=== PATIENT | female | born 1965 | race Caucasian/White ===

== ENCOUNTER 2020-03-06 18:18 | Emergency (ER) | payer MEDICAID ==
[2020-03-06 18:34] VITALS: BP 122/61
--- NOTE | 2020-03-06 18:40 | ER Document Report ---
ED Head/Face/Scalp Injury - General Chief Complaint: Head Injury Stated Complaint: HEAD INJURY Time Seen by Provider: 03/06/20 18:29 Primary Care Provider: ANCELMO VERA NP [Primary Care Provider] - Follow up as needed Mode of Arrival: Wheelchair Information source: Patient Notes: 54-year-old female presented to ED for hitting her head on a metal rack during a yard sale. She did have a very superficial scratch to the left forehead. She states she was dizzy when she first hit she has some nausea but no vomiting. States tetanus was 3 years ago. She is alert oriented respirations regular nonlabored speaking in full sentences. She has a past medical history of diabetes cholesterol neuropathy from the diabetes. She also has anxiety depression and has had her gallbladder removed. TRAVEL OUTSIDE OF THE [place] IN LAST 30 DAYS: No - HPI Patient complains to provider of: Contusion, Laceration - Very superficial scratch to the left forehead Injury to: Forehead Location of problem: Forehead Occurred: Just prior to arrival Where: Home, Outdoors Timing: Better Context: Became dizzy/fainted, Laceration - Very superficial laceration Loss consciousness: No loss of consciousness Remembers: Injury, Coming to hospital - Related Data Allergies/Adverse Reactions: alprazolam [From Xanax] Adverse Reaction (Unknown, Verified 03/06/20 18:29) Nausea Past Medical History - General Information source: Patient - Social History Smoking Status: Current Every Day Smoker Cigarette use (# per day): Yes - Pack per day Chew tobacco use (# tins/day): No Smoking Education Provided: Yes - 4 minutes Frequency of alcohol use: None Drug Abuse: None Lives with: Family Family History: Arthritis, CAD - Mother with coronary disease in her 30s, father in his 60s, CVA, DM, Hyperlipidemia, Hypertension, Malignancy, Thyroid Disfunction Patient has homicidal ideation: No - Past Medical History Cardiac Medical History: Reports: Hx Hypercholesterolemia, Hx Hypertension Pulmonary Medical History: Reports: None EENT Medical History: Reports: None Neurological Medical History: Reports: None Endocrine Medical History: Reports: Hx Diabetes Mellitus Type 2 Renal/ Medical History: Reports: None Malignancy Medical History: Reports: None GI Medical History: Reports: None Musculoskeletal Medical History: Reports Hx Arthritis, Reports Hx Musculoskeletal Deformity - scoliosis, chronic back pain Skin Medical History: Reports None Psychiatric Medical History: Reports: Hx Depression Traumatic Medical History: Reports: None Infectious Medical History: Reports: None Past Surgical History: Reports: Hx Cholecystectomy - Immunizations Hx Diphtheria, Pertussis, Tetanus Vaccination: Yes Hx Pneumococcal Vaccination: 07/25/13 Review of Systems - Review of Systems Constitutional: No symptoms reported EENT: No symptoms reported Cardiovascular: No symptoms reported Respiratory: No symptoms reported Gastrointestinal: No symptoms reported Genitourinary: No symptoms reported Female Genitourinary: No symptoms reported Musculoskeletal: No symptoms reported Skin: No symptoms reported Hematologic/Lymphatic: No symptoms reported Neurological/Psychological: No symptoms reported, Headaches -: Yes All other systems reviewed and negative Physical Exam - Vital signs Vitals: Temp Pulse Resp BP Pulse Ox 99.0 F 67 16 122/61 96 03/06/20 18:26 03/06/20 18:26 03/06/20 18:26 03/06/20 18:26 03/06/20 18:26 Interpretation: Normal - General General appearance: Appears well, Alert - HEENT Head: Open wounds - Very superficial laceration to the left forehead about 2 cm cleaned well with soap and water bacitracin applied, Tenderness Eyes: Normal Pupils: PERRL Visual bolanos normal: Yes Ears: Normal External canal: Normal Tympanic membrane: Normal Sinus: Normal Nasal: Normal Mouth/Lips: Normal Mucous membranes: Normal Pharynx: Normal Neck: Normal - Respiratory Respiratory status: No respiratory distress Chest status: Nontender Breath sounds: Normal Chest palpation: Normal - Cardiovascular Rhythm: Regular Heart sounds: Normal auscultation Murmur: No - Abdominal Inspection: Normal Distension: No distension Bowel sounds: Normal Tenderness: Nontender Organomegaly: No organomegaly - Back Back: Normal, Nontender - Extremities General upper extremity: Normal inspection, Nontender, Normal color, Normal ROM, Normal temperature General lower extremity: Normal inspection, Nontender, Normal color, Normal ROM, Normal temperature, Normal weight bearing. No: Ham's sign - Neurological Neuro grossly intact: Yes Cognition: Normal Orientation: AAOx4 Asc[place] Coma Scale Eye Opening: Spontaneous Ascencion Coma Scale Verbal: Oriented [place] Coma Scale Motor: Obeys Commands Ascencion Coma Scale Total: 15 Speech: Normal Cranial nerves: Normal Cerebellar coordination: Normal Motor strength normal: LUE, RUE, LLE, RLE Additional motor exam normals: Equal java developer Babinski reflex: Normal (flexor plantar) Sensory: Normal Biceps - Reflex grade: 2 = Normal Triceps - Reflex grade: 2 = Normal Brachioradialis - Reflex grade: 2 = Normal Knee - Reflex grade: 2 = Normal Ankle - Reflex grade: 2 = Normal - Psychological Associated symptoms: Normal affect, Normal mood - Skin Skin Temperature: Warm Skin Moisture: Dry Skin Color: Normal Course - Re-evaluation Re-evalutation: 03/06/20 18:42 No neurological deficits at this time. She is alert and oriented no loss of consciousness no vomiting no change in orientation answering questions appropriately walks with even steady gait. She has been given head injury precautions. Her superficial laceration was cleaned with soap and water bacitracin applied with a Band-Aid. Patient was given instructions on cleaning wound and applying bacitracin and Band-Aid. - Vital Signs Vital signs: Temp Pulse Resp BP Pulse Ox 99 F 67 16 122/61 96 03/06/20 18:29 03/06/20 18:26 03/06/20 18:26 03/06/20 18:26 03/06/20 18:26 Discharge - Discharge Clinical Impression: Superficial laceration to the left forehead Head injury Qualifiers: Encounter type: initial encounter Qualified Code(s): S09.90XA - Unspecified injury of head, initial encounter Condition: Stable Disposition: HOME, SELF-CARE Additional Instructions: HEAD INJURY PRECAUTIONS: At this point, there is no evidence that your head injury is serious. Observation is necessary, however. Take only clear liquids for the first few hours, unless told otherwise by the doctor. If no pain medication was prescribed, you may take acetaminophen according to the directions on the bottle. Do not take any medication that may alter your level of alertness (unless you've discussed it with the doctor first). Limit activity for the first 24 hours. Bed rest is best. During the first 24 hours, check to see approximately every two to three hours that the patient is easily arousable, responds normally, and can perform common tasks such as walking without difficulty. Contact your doctor or go to the hospital if any of the following things occur: Persistent vomiting, difficulty in arousing the patient, worsening or continued headache, or failure to improve as expected. Head injuries can cause symptoms that persist for a few days or even a few weeks. USE OF TYLENOL (ACETAMINOPHEN): Acetaminophen may be taken for pain relief or fever control. It's much safer than aspirin, offering a wider range of "safe" dosages. It is safe during . Some brand names are Tylenol, Panadol, Datril, Anacin 3, Tempra, and Liquiprin. Acetaminophen can be repeated every four hours. The following are maximum recommended dosages: WEIGHT Dose Drops Elixir Chewable(80mg) (LBS.) drprs=droppers tsp=teaspoon 6 40 mg 0.4 ml (1/2) 6-11 80 mg 0.8 ml (full) tsp 1 tab 12-16 120 mg 1 1/2 drprs 3/4 tsp 1 1/2 tabs 17-23 160 mg 2 drprs 1 tsp 2 tabs 24-30 240 mg 3 drprs 1 1/2 tsp 3 tabs 30-35 320 mg 2 tsp 4 tabs 36-41 360 mg 2 1/4 tsp 4 1/2 tabs 42-47 400 mg 2 1/2 tsp 5 tabs 48-53 480 mg 3 tsp 6 tabs 54-59 520 mg 3 1/4 tsp 6 1/2 tabs 60-64 560 mg 3 1/2 tsp 7 tabs 65-70 600 mg 3 3/4 tsp 7 1/2 tabs 71-76 640 mg 4 tsp 8 tabs 77-82 720 mg 4 1/2 tsp 9 tabs 83-88 800 mg 5 tsp 10 tabs >89 pounds or adults 650 mg to 900 mg Acetaminophen can be repeated every four hours. Maximum dose not to exceed 4000 mg a day. These maximum recommended dosages are slightly higher than the dosages written on the product container, but these dosages are very safe and below the toxic dosage for acetaminophen. NON-SUTURED LACERATION: Your laceration did not require suturing. Some lacerations cannot be sutured because of increased infection risk, while others simply don't need stitches because they are shallow or very short. Your injury should be protected while it heals. Usually complete healing takes 10 to 14 days. Keep the dressing clean and dry, and change it every day. If you notice increasing pain, redness, swelling, drainage, or tender lumps in the armpit or groin above the injury, infection may be present. You should call the doctor at once. ICE PACKS: Apply ice packs frequently against the painful area. Many different schedules are recommended, such as "20 minutes on, 20 minutes off" or "one hour ice, two hours rest." If you need to work, you may need to go longer between ice treatments. You should plan to have the area ice packed AT LEAST one fourth of the time. The ice should be applied over the wrap, tape, or splint, or over a layer of cloth -- not directly against the skin. Some ice bags have a built-in cloth and can be put directly on the skin. WARM PACKS: After approximately two days, apply gentle heat (such as a heating pad or hot water bottle) for about 20 to 30 minutes about every two hours -- at least four times daily. Warmth and elevation will help you make a more rapid recovery, and will ease the pain considerably. Do not use HOT heat, and never apply heat for longer than 30 minutes. The continuous heat can invisibly damage skin and muscles -- even when no burn is seen on the surface. Damaged muscles can make you MORE sore. Antibiotic Ointment Protection Your wounds are such that dressing them is not practical or optional. After cleansing, you should apply a thin coating of antibiotic ointment (Bacitracin, not Neosporin) to the wounds at least three times daily. This lessens infection risk, and may decrease the amount of scarring. Use a q-tip or dull butter knife, not your finger, to apply this ointment. Any debris or ooze which builds up in the ointment should be gently rubbed off with a sterile gauze pad. Harder crusting may need to be gently scrubbed off with a clean wash cloth with soap and warm water, perhaps applying a warm, wet wash cloth to the wound for ten minutes first. Development of redness, severe itching, or blistering may mean allergy to the ointment. See the doctor. FOLLOW-UP CARE: If you have been referred to a physician for follow-up care, call the physicians office for an appointment as you were instructed or within the next two days. If you experience worsening or a significant change in your symptoms, notify the physician immediately or return to the Emergency Department at any time for re-evaluation. Forms: Smoking Cessation Education Referrals: ANCELMO VERA NP [Primary Care Provider] - Follow up as needed
[2020-03-06] MEDS ORDERED: ACETAMINOPHEN 325 MG TABLET PO ONE (18:41)
== END 2020-03-06 18:44 | disposition home or self-care (01) ==
LOC: ER 18:18
DX: S01.81XA Laceration without foreign body of other part of head, initial encounter (principal); R51 Headache; W22.8XXA Striking against or struck by other objects, initial encounter; Y92.007 Garden or yard of unspecified non-institutional (private) residence as the place of occurrence of the external cause; E11.40 Type 2 diabetes mellitus with diabetic neuropathy, unspecified; I10 Essential (primary) hypertension; F17.210 Nicotine dependence, cigarettes, uncomplicated
CPT/HCPCS: 99283; J3490

== ENCOUNTER 2020-09-22 17:24 | Emergency (ER) | payer MEDICAID ==
--- NOTE | 2020-09-22 18:03 | ER Document Report ---
ED Medical Screen (RME) - General Chief Complaint: Rash Stated Complaint: RASH/REACTION TO MEDS Time Seen by Provider: 09/22/20 17:59 Primary Care Provider: ANCELMO VERA NP [Primary Care Provider] - Follow up as needed Notes: Patient presents complaining of skin rash for the past 10 days that has continued to worsen. Patient states she has rash to her chest and groin area in addition to the right forearm and left lower leg. Rash to the left leg and right forearm have open areas and the left leg is weeping. Patient reports chills at home and states her blood sugar has been running high. Patient is co ncerned she may be having a reaction to a new diabetic medication although is uncertain of the name of the medication. I have greeted and performed a rapid initial assessment of this patient. A comp rehensive ED assessment and evaluation of the patient, analysis of test results and completion of the medical decision making process will be conducted by additional ED providers. TRAVEL OUTSIDE OF THE [place] IN LAST 30 DAYS: No - Related Data Allergies/Adverse Reactions: alprazolam [From Xanax] Adverse Reaction (Unknown, Verified 03/06/20 18:29) Nausea Past Medical History - Past Medical History Cardiac Medical History: Reports: Hx Hypercholesterolemia, Hx Hypertension Endocrine Medical History: Reports: Hx Diabetes Mellitus Type 2 Musculoskeltal Medical History: Reports Hx Arthritis, Reports Hx Musculoskeletal Deformity - scoliosis, chronic back pain Psychiatric Medical History: Reports: Hx Depression Past Surgical History: Reports: Hx Cholecystectomy - Immunizations Hx Diphtheria, Pertussis, Tetanus Vaccination: Yes Physical Exam - Vital signs Vitals: Temp Pulse Resp BP Pulse Ox 98.1 F 92 20 137/70 H 100 09/22/20 17:28 09/22/20 17:28 09/22/20 17:28 09/22/20 17:28 09/22/20 17:28 - General General appearance: Alert Notes: Erythematous rash to chest and groin area, rash to the dorsal right forearm and anterior left lower leg crusted in areas with open lesions, patient with left leg wounds weeping Course - Vital Signs Vital signs: Temp Pulse Resp BP Pulse Ox 98.1 F 92 20 137/70 H 100 09/22/20 17:28 09/22/20 17:28 09/22/20 17:28 09/22/20 17:28 09/22/20 17:28 Doctor's Discharge - Discharge Referrals: ANCELMO VERA, [facility] [Primary Care Provider] - Follow up as needed
[2020-09-22 18:38] LABS: ABSOLUTE BASOPHILS # (AUTO) 0.1 10^3/uL (0.0-0.2); ABSOLUTE EOSINOPHILS # (AUTO) 0.2 10^3/uL (0.0-0.6); ABSOLUTE LYMPHOCYTES (AUTO) 1.6 10^3/uL (0.5-4.7); ABSOLUTE MONOCYTES (AUTO) 0.6 10^3/uL (0.1-1.4); ABSOLUTE NEUT (AUTO) 7.3 10^3/uL (1.7-8.2); EOSINOPHILS % (AUTO) 2.5 % (0-6); HEMATOCRIT 33.9 % (36.0-47.0); HEMOGLOBIN 11.6 g/dL (12.0-15.5); MEAN CORPUSCULAR HEMOGLOBIN 29.3 pg (27.0-33.4); MEAN CORPUSCULAR HGB CONC 34.1 g/dL (32.0-36.0); MEAN CORPUSCULAR VOLUME 86 fl (80-97); MONOCYTES % (AUTO) 6.3 % (3-13); PLATELET COUNT 399 10^3/uL (150-450); RED BLOOD COUNT 3.95 10^6/uL (3.72-5.28); SEGMENTED NEUTROPHILS % (AUTO) 74.2 % (42-78); TOTAL CELLS COUNTED % (AUTO) 100 %; WHITE BLOOD COUNT 9.8 10^3/uL (4.0-10.5)
[2020-09-22 19:05] LABS: ALBUMIN 4.4 g/dL (3.5-5.0); ALKALINE PHOSPHATASE 64 U/L (38-126); ANION GAP 10 (5-19); ASPARTATE AMINO TRANSFERASE 21 U/L (14-36); BILIRUBIN,DIRECT 0.1 mg/dL (0.0-0.4); BILIRUBIN,TOTAL 0.4 mg/dL (0.2-1.3); BLOOD UREA NITROGEN 17 mg/dL (7-20); CALCIUM 10.4 mg/dL (8.4-10.2); CARBON DIOXIDE 27 mmol/L (22-30); CHLORIDE 98 mmol/L (98-107); GLUCOSE 226 mg/dL (75-110); POTASSIUM 4.3 mmol/L (3.6-5.0); TOTAL PROTEIN 7.8 g/dL (6.3-8.2)
--- NOTE | 2020-09-22 19:47 | ER Document Report ---
ED General - General Chief Complaint: Rash Stated Complaint: RASH/REACTION TO MEDS Time Seen by Provider: 09/22/20 17:59 Primary Care Provider: ANCELMO VERA NP [Primary Care Provider] - Follow up as needed TRAVEL OUTSIDE OF THE [place] IN LAST 30 DAYS: No - HPI Notes: 55-year-old female presents with a rash. Patient has had a generalized rash to her neck, chest, torso and extremities ongoing for several weeks. Patient states that the rash seemed to have started after she started taking atorvastatin, started this medication back in July. She has discontinued this medication for the past 2 days. Patient states that the areas are red and very itchy. She has 2 areas that seem to become infected. She saw her primary care doctor for the left lower leg and was prescribed Keflex, she reports that the area is improving, started on Keflex 09/13. She states that a new area of infection is on the right arm. - Related Data Allergies/Adverse Reactions: alprazolam [From Xanax] Adverse Reaction (Unknown, Verified 03/06/20 18:29) Nausea Past Medical History - General Information source: Patient - Social History Smoking Status: Unknown if Ever Smoked Family History: Arthritis, CAD - Mother with coronary disease in her 30s, father in his 60s, CVA, DM, Hyperlipidemia, Hypertension, Malignancy, Thyroid Disfunction - Past Medical History Cardiac Medical History: Reports: Hx Hypercholesterolemia, Hx Hypertension Endocrine Medical History: Reports: Hx Diabetes Mellitus Type 2 Musculoskeletal Medical History: Reports Hx Arthritis, Reports Hx Musculoskeletal Deformity - scoliosis, chronic back pain Psychiatric Medical History: Reports: Hx Depression Past Surgical History: Reports: Hx Cholecystectomy - Immunizations Hx Diphtheria, Pertussis, Tetanus Vaccination: Yes Hx Pneumococcal Vaccination: 07/25/13 Review of Systems - Review of Systems Constitutional: denies: Fever EENT: No symptoms reported Cardiovascular: No symptoms reported Respiratory: No symptoms reported Gastrointestinal: No symptoms reported Genitourinary: No symptoms reported Female Genitourinary: No symptoms reported Musculoskeletal: denies: Joint pain, Joint swelling Skin: See HPI Hematologic/Lymphatic: No symptoms reported Neurological/Psychological: No symptoms reported Physical Exam - Vital signs Vitals: Temp Pulse Resp BP Pulse Ox 98.1 F 92 20 137/70 H 100 09/22/20 17:28 09/22/20 17:28 09/22/20 17:28 09/22/20 17:28 09/22/20 17:28 - General General appearance: Appears well, Alert In distress: None - HEENT Head: Normocephalic, Atraumatic Extraocular movements intact: Yes Pupils: PERRL Mouth/Lips: Other - No lesions to oral mucosa Mucous membranes: Moist - Respiratory Breath sounds: Normal - Cardiovascular Rhythm: Regular Heart sounds: Normal auscultation - Abdominal Tenderness: Nontender - Extremities General upper extremity: Normal ROM General lower extremity: Normal ROM - Neurological Neuro grossly intact: Yes Cognition: Normal Orientation: AAOx4 - Psychological Associated symptoms: Normal affect - Skin Skin Temperature: Warm Notes: Multiple areas of erythematous plaques to the base of the neck, some have a scaly appearance, evidence of excoriations Right arm has large area of erythematous plaques to the extensor service of the forearm, excoriations are present, there is some yellow crusting Left lower leg exhibit similar appearance to the right forearm, there is more yellow crusting and some weeping, there are no blisters/bullae All areas are nontender Course - Re-evaluation Re-evalutation: 55-year-old female presents with rash ongoing for several weeks per her report, currently being followed by her primary care doctor, some correlation to starting atorvastatin, patient has discontinued this medication. On exam the areas to her neck and face have an eczema-like appearance, patient is frequently itching at these areas, there are no bullae/blisters. Patient has evidence of a secondary superficial skin infection to the right forearm and left lower leg. There is no mucosal involvement. It is hard to say exactly what this is is it a drug eruption versus a primary skin process going on. Will start treatment with steroids and Benadryl, will have nursing apply topical mupirocin to the arm and leg, will also give a dose of Ancef as she is currently on Keflex and having a positive response. 09/23/20 00:01 In to check on patient, the erythema has improved, states the itching is better but she is still itchy, will trial dose of hydroxyzine Patient was discharged with Bactroban, hydroxyzine and Medrol Dosepak. I encouraged her to have very close follow with your primary care doctor and to continue the Keflex. I also discussed referral to dermatology. Return precautions given, stable time of discharge. - Vital Signs Vital signs: Temp Pulse Resp BP Pulse Ox 99.7 F 78 17 111/57 L 97 09/23/20 01:09 09/23/20 01:09 09/23/20 01:09 09/23/20 01:09 09/23/20 01:09 - Laboratory Results Result Diagrams: 09/22/20 18:12 09/22/20 18:12 Laboratory Results Interpreted: 09/22/20 09/22/20 09/22/20 18:12 18:12 18:12 Hgb 11.6 L Hct 33.9 L Sodium 134.7 L Glucose 226 H POC Glucose 225 H Calcium 10.4 H Critical Laboratory Results Reviewed: No Critical Results - Radiology Results Critical Radiology Results Reviewed: No Critical Results Discharge - Discharge Clinical Impression: Skin eruption Disposition: HOME, SELF-CARE Additional Instructions: Please continue Keflex. Please also apply the topical antibiotic (bactroban) 3 times a day to your leg and arm, please keep these areas covered. Begin course of steroids. Discontinue use of atorvastatin. You may use hydroxyzine for itching. Please have close follow-up with your primary care doctor, ask for referral to dermatology. Return to the emergency department for any concerning worsening symptoms. Prescriptions: Mupirocin [Bactroban 2% Ointment 22 gm] 1 applic TP TID 10 Days #1 tube Methylprednisolone [Medrol Dosepack (4 mg/Tab) 21 Tab/Dosepak] 4 mg PO ASDIR PRN #21 tab.ds.pk PRN Reason: Hydroxyzine Pamoate [Vistaril 50 mg Capsule] 50 mg PO TID PRN #60 capsule PRN Reason: Itching Referrals: ANCELMO VERA, GURINDER [Primary Care Provider] - Follow up as needed
[2020-09-22] MEDS ORDERED: METHYLPREDNISOLONE INJ 125 MG/2 ML SDV IV ONE (20:07)
[2020-09-22] MEDS ORDERED: DIPHENHYDRAMINE HCL 50 MG/ML VIAL IV ONE (20:07)
[2020-09-22] MEDS ORDERED: MUPIROCIN 2% OINTMENT 22 GM TP ONE (20:08)
[2020-09-22] MEDS: CEFAZOLIN 2 GM/D5W RTU 2 GM/50 ML RTUPB IV SCH (20:41)
[2020-09-23] MEDS ORDERED: HYDROXYZINE PAMOATE 50 MG CAPSULE PO ONE
[2020-09-23] MEDS: CEFAZOLIN 2 GM/D5W RTU 2 GM/50 ML RTUPB IV SCH (00:02)
[2020-09-23 01:11] VITALS: BP 111/57
== END 2020-09-22 23:58 | disposition home or self-care (01) ==
LOC: ER 17:24
DX: R21 Rash and other nonspecific skin eruption (principal); L29.8 Other pruritus; L08.9 Local infection of the skin and subcutaneous tissue, unspecified; I10 Essential (primary) hypertension; E11.9 Type 2 diabetes mellitus without complications
CPT/HCPCS: 99284; 96375; 96365; 36415; 87040; 82962; 85025; 80053; J1200; J2930; J3490; J0690